=== PATIENT | male | born 1950 | race Caucasian/White ===

== ENCOUNTER 2021-02-01 09:23 | Emergency (ER) | payer OTHER ==
[~2021-02-01] VITALS: Ht 188 cm; Wt 77.6 kg
[~2021-02-01 09:23] MED LIST: AMOCLA875 PO; CIPR500 PO; MIRT30 PO; OXYACE5T PO; OXYC1TAB11 PO; Omeprazole20 M1 PO
[2021-02-01] MEDS ORDERED: HYDR1TAB94 PO (10:45)
== END 2021-02-01 11:45 | disposition home or self-care (01) ==
LOC: ER 09:23
DX: S42.411A Displaced simple supracondylar fracture without intercondylar fracture of right humerus, initial encounter for closed fracture (principal); I10 Essential (primary) hypertension; Z79.899 Other long term (current) drug therapy; W01.0XXA Fall on same level from slipping, tripping and stumbling without subsequent striking against object, initial encounter
CPT/HCPCS: 29105; 73080; 99283-25

== ENCOUNTER 2021-03-11 06:19 | Emergency (ER) | payer OTHER ==
[~2021-03-11] VITALS: Ht 185.4 cm; Wt 77.1 kg
[~2021-03-11 06:19] MED LIST changes: +HYDR1TAB94 PO
[2021-03-11] MEDS ORDERED: NAPROXEN250 M1 PO (08:00)
== END 2021-03-11 08:51 | disposition home or self-care (01) ==
LOC: ER 06:19
DX: S39.012A Strain of muscle, fascia and tendon of lower back, initial encounter (principal); I10 Essential (primary) hypertension; W07.XXXA Fall from chair, initial encounter
CPT/HCPCS: 72100; 99283-25; A9270

== ENCOUNTER 2021-03-12 23:23 | Inpatient (IN) | payer OTHER, MEDICARE ==
[~2021-03-12] VITALS: Ht 185.4 cm; Wt 81.7 kg
[~2021-03-12 23:23] MED LIST changes: +NAPROXEN250 M1 PO
[2021-03-13 00:06] LABS: BASOPHILS ABSOLUTE AUTO 0.01 K/mm3 (0.00-0.23); BASOPHILS PERCENT AUTO 0 % (0-2); EOSINOPHILS ABSOLUTE AUTO 0.03 K/mm3 (0.00-0.68); EOSINOPHILS PERCENT AUTO 1 % (0-6); Hematocrit 42.8 % (37.0-53.0); Hemoglobin 15.5 g/dL (13.5-17.5); IMMATURE GRAN PERCENT AUTO 0 % (0-1); LYMPHOCYTES ABSOLUTE AUTO 0.67 K/mm3 (0.84-5.20); LYMPHOCYTES PERCENT AUTO 21 % (21-46); MONOCYTES PERCENT AUTO 6 % (4-13); Mean Corpuscular HGB 36.8 pg (26.0-34.0); Mean Corpuscular HGB Conc 36.2 g/dL (31.5-36.5); Mean Corpuscular Volume 102 fL (80-100); Mean Platelet Volume 9.9 fL (9.1-12.4); NEUTROPHILS ABSOLUTE AUTO 2.23 K/mm3 (1.96-9.15); NEUTROPHILS PERCENT AUTO 71 % (41-73); Platelet Count 187 K/mm3 (150-400); RDW Coefficient Variation 12.2 % (11.7-14.2); Red Blood Cell Count 4.21 M/mm3 (4.30-5.90); White Blood Cell Count 3.14 K/mm3 (4.00-11.30)
[2021-03-13 00:25] LABS: Alanine Aminotransfer (ALT/SGP 33 U/L (12-78); Albumin, Blood 3.5 g/dL (3.4-5.0); Albumin/Globulin Ratio 0.9 (0.8-1.8); Alk Phos 111 U/L (50-136); Anion Gap 13 mmol/L (6-16); Aspartate Aminotrans (AST/SGOT 29 U/L (12-37); Bilirubin, Total 1.2 mg/dL (0.1-1.0); Blood Urea Nitrogen 20 mg/dL (8-24); Bun/Creatinine Ratio 22.7 (12.0-20.0); CO2, Blood 22 mmol/L (21-32); Calcium, Blood 8.6 mg/dL (8.5-10.1); Chloride, Blood 96 mmol/L (98-108); Creatinine, Blood 0.88 mg/dL (0.60-1.20); Globulin, Blood 3.7 g/dL (2.2-4.0); Glomerular Filtration Rate >60 (60-); Glucose, Blood 124 mg/dL (70-99); Potassium, Blood 2.8 mmol/L (3.5-5.5); Sodium, Blood 131 mmol/L (136-145); Total Protein, Blood 7.2 g/dL (6.4-8.2)
[2021-03-13 03:31] LABS: SARS-Cov-2 (COVID-19) PCR, MMC NEGATIVE (NEGATIVE)
--- NOTE | 2021-03-13 06:23 | NUR ---
PT ARRIVED AT THE UNIT AT 0430 AM. PT APPEARS VERY PAINFUL, MOANING. DIAPHORETIC AND COOL TO TOUCH. PT AOX4. VSS. FENTANYL FROM ED WAS GIVEN AT 0300 AM. IT DOESN'T SEEM TO HELPED. CHARGE NURSE DALY ASSIST IN CALLING DR. EDGE/HOSPITALIST. FENTANYL 50MCG WAS CHANGED TO Q2 INSTEAD OF Q4. PT REPORTS EPIGASTRIC PAIN. DENIES NAUSEA AND VOMITING. NPO. NO ABD DISTENTION, TENDER ON RLQ. PT HX ETOH. LAST ALCOHOL INTAKE WAS 03/12/2021 IN THE AFTERNOON. 20G IV ON LEFT FOREARM. LEFT FORM ARM HAS SCATTERED BRUISING AND HAD SOME DRIED BLOOD DUE TO RECENT FALL PER PT. RIGHT ARM HAS A BRACE. REORIENT IN ROOM. CALL LIGHT WITHIN REACH. WILL PROVIDE REPORT TO ONCOMING NURSE.
--- NOTE | 2021-03-13 07:48 | NUR ---
DR NATARAJAN CALLED RE LACTIC 2.[address] MORRIS BY TO SEE PT EARLIER TO TAKE PT TO OR NOW PT CLOTHES REMOVED PT HAD SEVERAL SKIN TEARS TO L ARM UNDER HIS SHIRT WE REMOVED DRESSINGS APPLED AND CLEANED WITH SOAP AND WATER
--- NOTE | 2021-03-13 08:19 | NUR ---
pt transported to or via bed
--- NOTE | 2021-03-13 09:07 | NUR ---
PT TRANSFERED TO [facility] VIA BED FROM FLOOR. History, Chart, Medications and Allergies reviewed before start of procedure. LUNGS WHEEZY THROUGHOUT. Patient confirms NPO status and agrees with scheduled surgery. Pre-Op teaching done. Pt verbalizes understanding.
--- NOTE | 2021-03-13 10:09 | NUR ---
03/13/21 1009 DEWAYNESD EVANS PT RECEIVED PRE OP ANTIBIOTICS PRIOR TO PROCEDURE PER DR MORRIS ORDERS.
[2021-03-13 13:34] LABS: Hematocrit 38.5 % (37.0-53.0); Hemoglobin 13.5 g/dL (13.5-17.5); Mean Corpuscular HGB Conc 35.1 g/dL (31.5-36.5); Mean Corpuscular Volume 106 fL (80-100); Mean Platelet Volume 10.4 fL (9.1-12.4); Platelet Count 165 K/mm3 (150-400); RDW Coefficient Variation 12.5 % (11.7-14.2); RDW Standard Deviation 49.1 fL (35.1-46.3); Red Blood Cell Count 3.65 M/mm3 (4.30-5.90); White Blood Cell Count 1.63 K/mm3 (4.00-11.30)
[2021-03-13 13:47] LABS: Alanine Aminotransfer (ALT/SGP 52 U/L (12-78); Alk Phos 63 U/L (50-136); Anion Gap 5 mmol/L (6-16); Aspartate Aminotrans (AST/SGOT 88 U/L (12-37); Bilirubin, Total 1.5 mg/dL (0.1-1.0); Blood Urea Nitrogen 20 mg/dL (8-24); Bun/Creatinine Ratio 33.3 (12.0-20.0); CO2, Blood 26 mmol/L (21-32); Calcium, Blood 7.2 mg/dL (8.5-10.1); Chloride, Blood 101 mmol/L (98-108); Glomerular Filtration Rate >60 (60-); Glucose, Blood 166 mg/dL (70-99); Magnesium, Blood 1.5 mg/dL (1.6-2.4); Phosphorus, Blood 4.5 mg/dL (2.5-4.9); Potassium, Blood 4.3 mmol/L (3.5-5.5); Sodium, Blood 132 mmol/L (136-145)
[2021-03-13 13:50] LABS: Albumin/Globulin Ratio 0.7 (0.8-1.8); Globulin, Blood 2.8 g/dL (2.2-4.0)
[2021-03-13 14:09] LABS: BAND PERCENT MAN 46 % (0-8); BASOPHILS PERCENT MAN 0 % (0-2); EOSINOPHILS PERCENT MAN 0 % (0-6); LYMPHOCYTES % ATYPICAL MANUAL 3 % (0-0); LYMPHOCYTES ABSOLUTE MAN 0.29 K/mm3 (0.84-5.20); LYMPHOCYTES PERCENT MAN 15 % (21-46); METAMYELOCYTE PERCENT MAN 19 % (0-0); MONOCYTES ABSOLUTE MAN 0.11 K/mm3 (0.16-1.47); MONOCYTES PERCENT MAN 7 % (4-13); NEUTROPHILS ABSOLUTE MAN 0.91 K/mm3 (1.96-9.15); SEG NEUTROPHILS PERCENT MAN 10 % (41-73); TOTAL CELLS COUNTED 100
[2021-03-13 14:17] LABS: Total Protein, Blood 4.8 g/dL (6.4-8.2)
--- NOTE | 2021-03-13 16:00 | NUR ---
PT TO ICU 10 FROM OR AT 1215, REMAINS SEDATED FROM SURGERY BUT HAS NO CURRENT DRIPS FOR SEDATION. LEVOPHED INFUSING AT 20MCG UPON ARRIVAL, BP PER L GROIN ART LINE 170/90, LEVO STOPPED, BP REMAINS STABLE. HR SIT WITH BBB, RATE 105, OCCASIONAL PVC'S AND PAC'S PRESENT. LS COARSE T/O, SMALL AMOUNT OF THICK WHITE SPUTUM FROM ETT, SPECIMEN SENT TO LAB. VENT AC 16, Vt 400, PEEP 5, FIO2 100%, SPO2 100%, RR 16-18, WILL TITRATE FIO2 DOWN ABLE. BT ABSENT, ABD TENDER, GAURDED. MIDLINE INCISION WITH BAKARI DRESSING CDI, SEAN DRAIN TO RUQ AND SEAN TO LUQ WITH SMALL AMOUNT OF DARK SS DRAINAGE UPON ARRIVAL, NGT TO LIWS. ART LINE TO R GROIN WNL, SITE SOFT, DRESSING CDI. BILAT LE'S ARE COOL TO TOUCH WITH FAINT PEDAL PULSES, RUE'S ARE ALSO COOL TO TOUCH. RUE WITH RECENT HX OF FRACTURE AND SURGERY, REMAINS IN A BRACE AT THIS TIME. CL TO R IJ PRESENT, FLUSHES AND DRAWS. NEW ORDERS, LABS DRAWN, DNR REINSTATED PER DR. MORRIS. SEDATION FROM OR WORE OFF AROUND 1310, PROPOFOL GTT STARTED. BP DROPPED WITH PROPOFOL, ATTEMPTED TO TITRATE MULTIPLE TIMES, BP REMAINED LOW AND PT WOKE UP. NEW ORDERS FOR PRECEDEX, WILL TITRATE SEDATIVES TO EFFECT. LAB RESULTS RECEIVED, AWARE OF WBC, STATES NEUTROPENIC PRECAUTIONS UNNECESSARY AT THIS TIME. REPLACING MAG PER ORDERS. FIO2 CURRENTLY 30%, OTHER VENT SETTINGS UNCHANGED. SEAN OUTPUT INCREASING, 100ML EMPTIED FROM EACH.
--- NOTE | 2021-03-13 17:12 | NUR ---
UPDATE ATTEMPTING TO TITRATE SEDATION TO EFFECT WHILE KEEPING MAP >60, UNSUCCESSFUL. PT NOT TOLERATING VENT WHEN SEDATION DECREASED BUT BECOMES HYPOTENSIVE WHEN SEDATION INCREASED. MAP MID 50'S, PT DIAPHORETIC. LEVOPHED INITIATED AT 5MCG, MAP NOW 68.
--- NOTE | 2021-03-13 17:36 | NUR ---
T WAVES INVERTED AROUND 1615, DR. BARAKAT NOTIFIED. EKG OBTAINED, NO ACUTE EVENT NOTED, BBB REMAINS, LV HYPERTROPHY PER EKG. HAS VIEWED EKG, AWAITING NEW ORDERS. LEVOPHED AT 8MCG, BP 103/65, MAP 76.
--- NOTE | 2021-03-13 18:55 | NUR ---
END OF SHIFT LEVO AT 15MCG, BP STABLE AT THIS TIME WITH MAP 72, HR 86. PROPOFOL 20MCG, PRECEDEX 0.7MCG, PT RESTING WITH EYES CLOSED. WAKES EASILY, DENIES CHEST PAIN, AND ABDOMINAL PAIN, NO LONGER DIAPHORETIC. VENT SETTINGS AC 16, Vt 400, FIO2 30%, PEEP 5, RR 16-20, SPO2 100%. COARSE LS HAVE CLEARED WITH ETT SUCTIONING. ABD SOFT, BT ABSENT, 250ML TOTAL DARK SS FROM SEAN DRAINS, BAKARI DRESSING REMAINS INTACT WITH SCANT LIGHT SHADOWING. CL TO R IJ WNL, ART LINE TO L FEMORAL ARTERY WNL, ZEROED WHEN PT ARRIVED TO UNIT. BLE COOL TO TOUCH WITH SLUGGISH CAP REFILL, PEDAL AND PT PULSES PRESENT, MINIMAL DIFFERENCE BETWEEN RLE AND LLE TEMP. ST DEPRESSION REMAINS PRESENT, WELL BBB AND OCCASIONAL PVC'S/PAC'S. PT POSITIVE >8L INTAKE THIS SHIFT, ALBUMIN INFUSING PER ORDERS.
--- NOTE | 2021-03-13 19:00 | NUR ---
ASSUMED CARE ASSUMED CARE OF PATIENT. INTUBATED- AC 16, TV 400, PEEP 5, FIO2 30%. SEDATED WITH PROPOFOL AT 20MCG/KG/MIN AND PRECEDEX AT 0.7MCG/KG/HR. PT OPENS EYES TO VERBAL STIMULI. FOLLOWS SOME SIMPLE COMMANDS. NODS HEAD YES/NO APPROPRIATELY. DENIES C/O PAIN AT THIS TIME. BILATERAL SOFT WRIST RESTRAINTS IN PLACE TO PROTECT TUBES/LINES. MONITOR SHOW NSR WITH BBB, RATE 80s. MAP >65 WITH LEVOPHED AT 15MCG/MIN. MIDLINE BAKARI ABD DRSG INTACT WITH SCANT DRAINAGE NOTED AT DISTAL END. JPs TO LEFT AND RIGHT ABDOMEN SEROSANGUINOUS DRAINAGE. BARTHOLOMEW PATENT AND DRAINING ANNA MARIE URINE. NS INFUSING AT 100CC/HR. SEE SHIFT ASSESSMEMT FOR FULL ASSESSMENT.
[2021-03-14 04:23] LABS: Hematocrit 28.3 % (37.0-53.0); Hemoglobin 10.2 g/dL (13.5-17.5); Mean Corpuscular HGB 37.5 pg (26.0-34.0); Mean Corpuscular Volume 104 fL (80-100); Mean Platelet Volume 10.2 fL (9.1-12.4); Platelet Count 130 K/mm3 (150-400); RDW Coefficient Variation 12.5 % (11.7-14.2); RDW Standard Deviation 47.3 fL (35.1-46.3); Red Blood Cell Count 2.72 M/mm3 (4.30-5.90); White Blood Cell Count 3.07 K/mm3 (4.00-11.30)
[2021-03-14 04:41] LABS: Alanine Aminotransfer (ALT/SGP 32 U/L (12-78); Albumin, Blood 2.8 g/dL (3.4-5.0); Albumin/Globulin Ratio 1.2 (0.8-1.8); Alk Phos 36 U/L (50-136); Anion Gap 6 mmol/L (6-16); Aspartate Aminotrans (AST/SGOT 33 U/L (12-37); Bilirubin, Total 1.3 mg/dL (0.1-1.0); Blood Urea Nitrogen 14 mg/dL (8-24); Bun/Creatinine Ratio 22.4 (12.0-20.0); CO2, Blood 25 mmol/L (21-32); Calcium, Blood 7.5 mg/dL (8.5-10.1); Chloride, Blood 107 mmol/L (98-108); Creatinine, Blood 0.63 mg/dL (0.60-1.20); Globulin, Blood 2.4 g/dL (2.2-4.0); Glomerular Filtration Rate >60 (60-); Glucose, Blood 131 mg/dL (70-99); Magnesium, Blood 2.2 mg/dL (1.6-2.4); Potassium, Blood 3.7 mmol/L (3.5-5.5); Sodium, Blood 138 mmol/L (136-145); Total Protein, Blood 5.2 g/dL (6.4-8.2)
--- NOTE | 2021-03-14 06:48 | NUR ---
SHIFT SUMMARY PT REMAINS INTUBATED- AC 16, TV 400, PEEP 5, FIO2 30%. PROPOFOL TITRATED OFF AND SBT DONE THIS AM- SEE RT DOCUMENTATION. SEDATED WITH PROPOFOL BETWEEN 20-30MCG/KG/MIN. INFUSING NOW AT 30MCG/KG/MIN. PRECEDEX CONTINUES AT 0.7MCG/KG/HR. PT OPENS EYES TO VERBAL STIMULI AND FOLLOWS SIMPLE COMMANDS. NODS HEAD YES/NO APPROPRIATELY. MEDICATED WITH FENTANYL 50MCG IV X 2 DOSES WITH GOOD RELIEF. PT DENIED PAIN THIS AM. MONITOR SHOWS SR WITH BBB AND OCCASIONAL PVCs, RATE 60-80s. LEVOPHED INFUSED BETWEEN 1-20MCG/MIN DURING SHIFT TO MAINTAIN MAP >65. NOW INFUSING AT 3MCG/MIN. AFEBRILE. ABD DRSG D/I. JPs INTACT TO RIGHT AND LEFT ABDOMEN. NG WITH DARK GREEN DRAINAGE. BARTHOLOMEW PATENT AND DRAINING TO GRAVITY. RIJ PATENT. LEFT FEMORAL ARTERIAL PATENT, ZEROED. WILL REPORT TO ONCOMING RN WHEN AVAILABLE.
--- NOTE | 2021-03-14 09:26 | NUR ---
CARE OF PT ASSUMED AT 0700. PT SEDATED ON PROPOFOL AT 30MCG. PRECEDEX AT 0.7MCG FOR MECH VENT. PT WOKE UP DURING TURN AND GRIMACED. PT NODDED HEAD YES TO ABD PAIN. FENT 50MCG GIVEN FOR PAIN. MIDLINE DRSG C/D/I W BAKARI DRAIN. SEAN X 2 W MIN SS OUTPUT. PT TO HAVE CHO THIS AM FOR INVERTED T WAVE. DR BARAKAT IN THIS AM, FULL UPDATE GIVEN. POSSIBLE EXTUBATION TODAY. TROPONIN ORDERED.
--- NOTE | 2021-03-14 12:29 | NUR ---
PT PLACED ON SPONT PS 10 FOR WEANING TRIAL. LR AT 60/HR STARTED PER DR BARAKAT.
--- NOTE | 2021-03-14 12:56 | NUR ---
Echocardiogram using 0.50ml of Definity contrast performed.
--- NOTE | 2021-03-14 14:33 | NUR ---
PT EXTUBATED AT 1413. PT WIDE AWAKE. CIWA 0. PT DENIES C/O OF ABD PAIN AT THIS TIME. SATS 99% ON 2L VIA N/C. PT'S DAUGHTER AT BEDSIDE. PT AND PT'S DAUGHTER GIVEN COMPLETE UPDATE, QUESTIONS ANSWERED. NG TUBE REMAINS IN AND TO LIS PER DR MORRIS. RESTRAINTS REMOVED.
--- NOTE | 2021-03-14 14:56 | NUR ---
PRECEDEX AND LEVOPHED GTT STOPPED. SYMPTOMS OF WITHDRAWAL REVIEWED W PT, PT TO NOTIFY ME IF SYMPTOMS DEVELOP, WILL ALSO MONITOR CIWA. COUGHING AND DEEP BREATHING REVIEWED W PT, FOLDED BLANKET GIVEN TO BRACE W COUGHING. WILL GIVE PT I.S. W INSTRUCTIONS. A FEW BOWEL TONES HEARD TO LUQ, ABSENT OTHERWISE.
--- NOTE | 2021-03-14 18:40 | NUR ---
PT REMAINS AWAKE WITH LITTLE COMPLAINTS, WATCHING TV. FENT 50MCG GIVEN ONCE AFTER "COUGHING FIT". PAIN NOW 0/10. AT 1742 PT COVERTED TO AFIB W RVR RATE UP TO 150. DR BARAKAT NOTIFIED. CARDIZEM GTT STARTED AT 5MG/HR. CIWA REMAINS 0. DRSG TO MIDLINE REMAINS CDI. NG REMAINS TO LIS. PT DENIES NAUSEA. BP STABLE. PT AFEBRILE.
--- NOTE | 2021-03-14 19:00 | NUR ---
ASSUMED CARE ASSUMED CARE OF PATIENT. AWAKE AND ALERT. ORIENTED AND COOPERATIVE WITH CARE. WATCHING TV WHEN UNDISTURBED. C/O PAIN WITH COUGHING, BUT DENIES NEED FOR PAIN MED AT THIS TIME. DENIES C/O NAUSEA OR OTHER DISCOMFORT. MONITOR SHOWS AFIB WITH BBB, RATE 100-140s AT THIS TIME. BP STABLE. CARDIZEM GTT INFUSING AT 15MG/HR. RESPIRATIONS EVEN AND UNLABORED. FREQUENT COUGH, PRODUCTIVE AT TIMES OF THICK PAYNE SPUTUM. RIJ SITE PATENT. LEFT FEMORAL ARTERIAL LINE NOTED. MIDLINE ABDOMINAL INCISION WITH BAKARI DRSG. JPs TO RIGHT AND LEFT ABDOMEN WITH SEROSANGUINOUS DRAINAGE. BARTHOLOMEW PATENT AND DRAINING YELLOW URINE. SCDs TO BLEs. SEE SHIFT ASSESSMENT FOR FULL ASSESSMENT.
[2021-03-15 05:15] LABS: Hematocrit 30.7 % (37.0-53.0); Hemoglobin 10.6 g/dL (13.5-17.5); Mean Corpuscular HGB 36.8 pg (26.0-34.0); Mean Corpuscular HGB Conc 34.5 g/dL (31.5-36.5); Mean Corpuscular Volume 107 fL (80-100); Mean Platelet Volume 10.3 fL (9.1-12.4); Platelet Count 162 K/mm3 (150-400); RDW Coefficient Variation 12.9 % (11.7-14.2); RDW Standard Deviation 50.8 fL (35.1-46.3); Red Blood Cell Count 2.88 M/mm3 (4.30-5.90); White Blood Cell Count 7.95 K/mm3 (4.00-11.30)
[2021-03-15 05:33] LABS: Albumin, Blood 2.9 g/dL (3.4-5.0); Anion Gap 6 mmol/L (6-16); Blood Urea Nitrogen 13 mg/dL (8-24); Bun/Creatinine Ratio 20.8 (12.0-20.0); CO2, Blood 26 mmol/L (21-32); Calcium, Blood 8.5 mg/dL (8.5-10.1); Chloride, Blood 109 mmol/L (98-108); Creatinine, Blood 0.63 mg/dL (0.60-1.20); Glomerular Filtration Rate >60 (60-); Glucose, Blood 85 mg/dL (70-99); Phosphorus, Blood 1.8 mg/dL (2.5-4.9); Potassium, Blood 3.5 mmol/L (3.5-5.5); Sodium, Blood 141 mmol/L (136-145)
--- NOTE | 2021-03-15 06:16 | NUR ---
SHIFT SUMMARY NO ACUTE CHANGES DURING NOC. SLEPT INTERMITTENTLY WHEN UNDISTURBED. MEDICATED WITH FENTANYL 50MCG IV X 3 DOSES FOR C/O ABDOMINAL AND BACK PAIN. PT STATES ADEQUATE RELIEF OF PAIN. DENIES C/O NAUSEA. REMAINED IN AFIB WITH BBB T/O NOC WITH RATE 80s-150s. CARDIZEM INFUSING BETWEEN 5-15MG/HR- NOW AT 5MG/HR. CARDIZEM WAS OFF FOR A SHORT PERIOD OF TIME. AFEBRILE. 02 AT 2L NC TO MAINTAIN SATS >90%. RESPIRATIONS EVEN AND UNLABORED. FREQUENT COUGH PRODUCTIVE OF THICK SPUTUM. DENIES SOB/DYSPNEA. USES IS WITH ENCOURAGEMENT. ABD DRSG D/I. LEFT ABDOMEN SEAN WITH SMALL AMOUNT OF SEROUS DRAINAGE. RIGHT ABDOMEN SEAN WITH SEROSANGUINOUS DRAINAGE. NG TO LIS WITH BILE DRAINAGE. BARTHOLOMEW PATENT AND DRAINING TO GRAVITY. LR INFUSING AT 60CC/HR. RIJ CENTRAL LINE AND LEFT FEMORAL ARTERIAL LINE PATENT. WILL REPORT TO ONCOMING RN WHEN AVAILABLE.
--- NOTE | 2021-03-15 08:50 | NUR ---
CARE ASSUMED OF PT AT 0700. PT RESTING IN BED, DOZING ON AND OFF WHILE WATCHING TV. PT HAS MORE C/O ABD PAIN TODAY HE IS COUGHING UP SPUTUM FREQUENTLY. PT HAS A DIFF TIME TAKING IN A BIG BREATH D/T PAIN. IS AT BEDSIDE BUT AGAIN PT HAS A DIFF TIME USING D/T PAIN. MIDLINE INCISION W BAKARI VAC IS CDI. SEAN DRAINS X 2 DRAINING SMALL AMT OF SS FLUID. PT HAS A FEW FAINT BT'S TO LUQ. NG REMAINS TO LIS, LIGHT GREEN/YELLOW BILE TO CANISTER. LUNGS DIMINISHED TO BASES. PT COVERTED TO A SINUS RHTHYM FROM AFIB AROUND 0640 THIS AM. CARDIZEM IS AT 5MG/HR. PT HAS SOME HTN. ART LINE IN USE TO R FEM ART. BLE SLIGHTLY WARMER AND MORE PINK THAN YESTERDAY.
--- NOTE | 2021-03-15 10:01 | NUR ---
DR BARAKAT AT BEDSIDE. FULL UPDATE GIVEN. KPHOS 30MMOL INFUSING. CARDIZEM PLACED ON STANDBY. FENT INCREASED TO Q1HR
--- NOTE | 2021-03-15 16:36 | NUR ---
ART LINE REMOVED FROM LEFT GROIN. PRESSURE HELD X 10MIN. CLEAR OCCULSIVE DRSG PLACED. PT REMAINS IN SINUS RHTHYM W FREQ PAC/PVC. BP WNL TO HTN. PT HAS REQUIRED FENT 50MCG ABOUT EVERY 2HRS FOR ABD PAIN.
--- NOTE | 2021-03-15 18:33 | NUR ---
PT HAS DONE WELL THIS SHIFT. PT REMAINS IN SINUS RHTHYM W RATE 80'S, CONT TO HAVE ECTOPY; PAC/PVC. MINIMAL SS OUTPUT FROM SEAN DRAINS. DENIES NAUSEA. PAIN WELL CONTROLLED W FENT 50MCG ~2HRS. ENCOURAGED TO DEEP BREATH AND COUGH T/O SHIFT AND USE IS. MIDLINE DRSG REMAINS C/D/I. SATS >90% ON 2L VIA NC. LR CONT TO INFUSE AT 60CC/HR. PT NOW SURGICAL FLOOR STATUS.
--- NOTE | 2021-03-15 19:45 | NUR ---
TRANSFER TO UNIT OBTAINED REPORT FROM TANK ASSEMBLER. SETTLED PATIENT IN ROOM. ALERT AND ORIENTED. HOOKED UP IV LINES AND SUCTION. PATIENT RESTING IN BED. GAVE REPORT TO SCHOOL OFFICE MANAGER RN.
--- NOTE | 2021-03-16 04:46 | NUR ---
SHIFT SUMMARY POD#1 EXP LAP WITH COLLIN PATCH. AAOX4. DISCOMFORT DECREASED WITH 50mcg FENTANYL X1 THIS SHIFT. NO NAUSEA/EMESIS. ABD INCISION WITH BAKARI C/D/I, ABD SOFT/TENDER. SEAN X2 SECURE/DRAINING SS. NGT TO LIS. IVF + ABX PER ORDERS. BARTHOLOMEW SECURE/DRAINING. NO ACUTE CHANGES OVER NIGHT. PT RESTING WELL THIS AM WITH CALL LIGHT IN REACH.
[2021-03-16 05:04] LABS: Hematocrit 33.3 % (37.0-53.0); Hemoglobin 11.4 g/dL (13.5-17.5); Mean Corpuscular HGB 36.5 pg (26.0-34.0); Mean Corpuscular HGB Conc 34.2 g/dL (31.5-36.5); Mean Corpuscular Volume 107 fL (80-100); Mean Platelet Volume 9.9 fL (9.1-12.4); Platelet Count 203 K/mm3 (150-400); RDW Standard Deviation 50.9 fL (35.1-46.3); Red Blood Cell Count 3.12 M/mm3 (4.30-5.90)
[2021-03-16 05:26] LABS: Albumin, Blood 2.3 g/dL (3.4-5.0); Anion Gap 8 mmol/L (6-16); Blood Urea Nitrogen 13 mg/dL (8-24); CO2, Blood 24 mmol/L (21-32); Calcium, Blood 8.6 mg/dL (8.5-10.1); Chloride, Blood 108 mmol/L (98-108); Creatinine, Blood 0.62 mg/dL (0.60-1.20); Glomerular Filtration Rate >60 (60-); Glucose, Blood 79 mg/dL (70-99); Phosphorus, Blood 2.9 mg/dL (2.5-4.9); Potassium, Blood 3.4 mmol/L (3.5-5.5); Sodium, Blood 140 mmol/L (136-145)
[2021-03-16 05:38] LABS: BAND PERCENT MAN 3 % (0-8); BASOPHILS PERCENT MAN 0 % (0-2); EOSINOPHILS ABSOLUTE MAN 0.23 K/mm3 (0.00-0.68); EOSINOPHILS PERCENT MAN 2 % (0-6); LYMPHOCYTES ABSOLUTE MAN 0.23 K/mm3 (0.84-5.20); LYMPHOCYTES PERCENT MAN 2 % (21-46); MONOCYTES ABSOLUTE MAN 1.07 K/mm3 (0.16-1.47); MONOCYTES PERCENT MAN 9 % (4-13); NEUTROPHILS ABSOLUTE MAN 10.35 K/mm3 (1.96-9.15); SEG NEUTROPHILS PERCENT MAN 84 % (41-73); TOTAL CELLS COUNTED 100
--- NOTE | 2021-03-16 16:32 | NUR ---
PT TACHY. HR GREATER THAN 100 T/O DAY. DISCUSSED W/DR BLAKE. ORDERS OBTAINED TO INCREASE LR TO 100/HR X1.5L. PT RESTING IN BED. DENIES ANY NEEDS AT THIS TIME.
--- NOTE | 2021-03-16 18:32 | NUR ---
SUMMARY NO ACUTE CHANGES T/O SHIFT. MEDICATED PT PER ORDERS FOR PAIN TO ABD DUE TO COUGHING T/O SHIFT. PT NG PUTTING OUT DARK GREEN FLUID. SEAN X2 PUTTING OUT SS FLUID. BARTHOLOMEW CATH DARK YELLOW URINE. USES CALL LIGHT APPROPRIATELY.
--- NOTE | 2021-03-16 21:29 | NUR ---
CHART ACCESS THIS SPRAY PAINTER WAS CONTACTED BY PRIMARY RN FOR QUESTIONS ABOUT TELEMETRY REPORT OF A PROLONGED QT. PERFORMED CHART REVIEW TO LOOK INTO MEDICATIONS AND MAKE RECOMMENDATIONS FOR MD COMMUNICATION.
[2021-03-17 04:56] LABS: BASOPHILS ABSOLUTE AUTO 0.05 K/mm3 (0.00-0.23); BASOPHILS PERCENT AUTO 0 % (0-2); EOSINOPHILS ABSOLUTE AUTO 0.12 K/mm3 (0.00-0.68); EOSINOPHILS PERCENT AUTO 1 % (0-6); Hematocrit 35.4 % (37.0-53.0); Hemoglobin 12.1 g/dL (13.5-17.5); IMMATURE GRAN ABSOLUTE AUTO 0.11 K/mm3 (0.00-0.10); IMMATURE GRAN PERCENT AUTO 1 % (0-1); LYMPHOCYTES ABSOLUTE AUTO 0.72 K/mm3 (0.84-5.20); LYMPHOCYTES PERCENT AUTO 6 % (21-46); MONOCYTES ABSOLUTE AUTO 1.86 K/mm3 (0.16-1.47); MONOCYTES PERCENT AUTO 14 % (4-13); Mean Corpuscular HGB 36.8 pg (26.0-34.0); Mean Corpuscular HGB Conc 34.2 g/dL (31.5-36.5); Mean Corpuscular Volume 108 fL (80-100); Mean Platelet Volume 9.6 fL (9.1-12.4); NEUTROPHILS ABSOLUTE AUTO 10.02 K/mm3 (1.96-9.15); NEUTROPHILS PERCENT AUTO 78 % (41-73); Platelet Count 237 K/mm3 (150-400); RDW Coefficient Variation 12.8 % (11.7-14.2); Red Blood Cell Count 3.29 M/mm3 (4.30-5.90); White Blood Cell Count 12.88 K/mm3 (4.00-11.30)
[2021-03-17 05:16] LABS: Albumin, Blood 2.1 g/dL (3.4-5.0); Anion Gap 7 mmol/L (6-16); Blood Urea Nitrogen 15 mg/dL (8-24); Bun/Creatinine Ratio 25.2 (12.0-20.0); CO2, Blood 25 mmol/L (21-32); Calcium, Blood 8.7 mg/dL (8.5-10.1); Chloride, Blood 110 mmol/L (98-108); Glomerular Filtration Rate >60 (60-); Glucose, Blood 90 mg/dL (70-99); Phosphorus, Blood 3.1 mg/dL (2.5-4.9); Potassium, Blood 3.4 mmol/L (3.5-5.5); Sodium, Blood 142 mmol/L (136-145)
--- NOTE | 2021-03-17 06:20 | NUR ---
SHIFT SUMMARY POD4 EXP LAP AND COLLIN PATCH W/ DR. MORRIS. NO ACUTE CHANGES OVERNIGHT. PT REPORTS INCREASE PAIN WHEN COUGHING. PAIN MANAGED WITH FENTANYL 50MCG. NPO. NG TUBE INTACT, TAPE DRESSING CHANGED AFTER MIDNIGHT BECAUSE IT WAS LOSE. SEAN DRAIN 1 ON RUQ - DRAINING SS 5ML OUTPUT. SEAN DRAIN 2 ON LUQ - DRAINING SS 15ML OUTPUT. NG TUBE DRAINING BILEOUS COLOR -400ML OUTPUT. PT DENIES NAUSEA AND VOMITING. BARTHOLOMEW IN PLACED - OUTPUT OF 725ML WITH DARK YELLOW URINE. TELE AT SINUS 96 WITH PAC'S AT THE BEGINNING OF SHIFT. I WAS CALLED BY TELE AT 2130 NOTIFIED SOME QTC 0.52 (NOT NEW) WITH SOME PVC'S AND PAC'S. CONSULTED MELISSA RN FROM PCU [facility]VISE TO NOTIFY PROVIDER IF PERSIST AND MONITOR PT. PT WAS ASYMPTOMATIC, SLEEPING COMFORTABLE IN BED. THIS MORNING AT 0500AM HE WAS ON SINUS TACK WITH BBB PAC AND PVC'S AT 100. PT COMFORTABLE SLEEPING IN BED, DENIES CHEST PAIN AND SOB. BAKARI ON MIDLINE ABD IS PRESENT INTACT AND SUCTIONING. CIWA REMAIN NEGATIVE T/O SHIFT. CALL LIGHT WITHIN REACH. WILL PROVIDE REPORT TO ONCOMING NURSE AND NOTIFY ABOUT QTC - TELE EPISODE LAST NIGHT.
--- NOTE | 2021-03-17 08:44 | NUR ---
PT TO IMAGING
--- NOTE | 2021-03-17 14:00 | NUR ---
PT WORKING W/THERAPY
--- NOTE | 2021-03-17 14:23 | NUR ---
PT SITTING UP IN CHAIR. WORKED WITH THERAPY. WHILE USING RESTROOM, REPORTED FELT HOT; WAS DIAPHORETIC. SAT IN CHAIR AND O2 HIGH 80S. INCREASED OXYGEN TO 3L. NOW 91%. BP STABLE. PT DENIES STANLEY, TREMORS, NAUSEA. A&OX4. PT/OT RECOMMENDING SNF. CALL LIGHT IN REACH.
--- NOTE | 2021-03-17 17:07 | NUR ---
SUMMARY PT HAD UPPER GI THIS AM WHICH SHOWED NO LEAKS. DR MORRIS DC'D NG TUBE. PT TOLERATING CLEARS. WORKED W/PT AND OT. BOTH RECOMMENDING SNF AT THIS TIME. MEDICATED PT PER ORDERS T/O SHIFT FOR PAIN. JPS PUTTING OUT SMALL AMT SS FLUID. PT HAD SMALL BM THIS AFTERNOON. CALL LIGHT IN REACH.
[2021-03-18 05:16] LABS: BASOPHILS ABSOLUTE AUTO 0.05 K/mm3 (0.00-0.23); BASOPHILS PERCENT AUTO 0 % (0-2); EOSINOPHILS PERCENT AUTO 2 % (0-6); IMMATURE GRAN ABSOLUTE AUTO 0.12 K/mm3 (0.00-0.10); IMMATURE GRAN PERCENT AUTO 1 % (0-1); LYMPHOCYTES ABSOLUTE AUTO 0.88 K/mm3 (0.84-5.20); LYMPHOCYTES PERCENT AUTO 8 % (21-46); MONOCYTES ABSOLUTE AUTO 1.87 K/mm3 (0.16-1.47); MONOCYTES PERCENT AUTO 17 % (4-13); Mean Corpuscular HGB 36.1 pg (26.0-34.0); Mean Corpuscular HGB Conc 34.3 g/dL (31.5-36.5); Mean Corpuscular Volume 105 fL (80-100); Mean Platelet Volume 9.7 fL (9.1-12.4); NEUTROPHILS ABSOLUTE AUTO 8.22 K/mm3 (1.96-9.15); NEUTROPHILS PERCENT AUTO 72 % (41-73); Platelet Count 266 K/mm3 (150-400); RDW Coefficient Variation 12.8 % (11.7-14.2); RDW Standard Deviation 50.1 fL (35.1-46.3); Red Blood Cell Count 3.32 M/mm3 (4.30-5.90); White Blood Cell Count 11.34 K/mm3 (4.00-11.30)
--- NOTE | 2021-03-18 06:16 | NUR ---
SHIFT SUMMARY PT AOX4. POD5 DUODENAL ULCER WITH COLLIN PATCH WITH DR. LEAL VSS. PT ON 3L O2 SATURATING AT 90-95%. TELE ON SINUS TACH 90'S. TOLERATING CLEAR LIQ DIET. DENIES NAUSEA AND VOMITING. PT REPORTS PAIN BUT IT IS MORE ON THE LEFT CHEST/RIB AREA WHEN COUGHING. BINDER WAS PLACED AND SHE SAID THAT IT DID HELPED A LITTLE. PAIN MANAGED WITH FENTANYL 50MCG. PT ALSO HAS A WET COUGH. ENC CLEARING LUNGS WITH DEEP BREATHING EX, COUGHING W/ SPLINTING, AND USE OF I/S. IV ON L FOREARM INFILTRATED, SO DC'D IV. INFUSING NS AT 75ML/HR ON IJ.I ALSO DID PARTIAL BEDBATH THIS MORNING. USE URINAL WHEN VOIDING. CALL LIGHT WITHIN REACH. PLAN TO ADVANCE DIET TODAY AND CONT ABX. WILL PROVIDE REPORT TO ONCOMING NURSE.
--- NOTE | 2021-03-18 16:54 | NUR ---
SHIFT SUMMARY POD 5 EX LAP WITH GRAM PATCH. PT HAS TOLERATED DIET TODAY, DENIES ANY NAUSEA. PAIN MANAGED PER EMAR, REPORTS TOLERABLE WITH AN INCREASE WITH AMBULATION AND WHEN COUGHING. TRANSITIONED TO ORAL PAIN MEDS TODAY. 2 SEAN DRAINS PATENT AND DRAINING TODAY. SAT UP IN CHAIR FOR LARGE PORTION OF THE SHIFT.
--- NOTE | 2021-03-18 18:33 | NUR ---
removed picco dressing and changed dressin on r christian drain. pt requested somethinig to cover micaela placed medipore over for comfort.
[2021-03-19 04:38] LABS: BASOPHILS ABSOLUTE AUTO 0.07 K/mm3 (0.00-0.23); BASOPHILS PERCENT AUTO 1 % (0-2); EOSINOPHILS ABSOLUTE AUTO 0.19 K/mm3 (0.00-0.68); EOSINOPHILS PERCENT AUTO 2 % (0-6); Hematocrit 35.5 % (37.0-53.0); Hemoglobin 12.1 g/dL (13.5-17.5); IMMATURE GRAN PERCENT AUTO 1 % (0-1); LYMPHOCYTES ABSOLUTE AUTO 1.13 K/mm3 (0.84-5.20); LYMPHOCYTES PERCENT AUTO 10 % (21-46); MONOCYTES ABSOLUTE AUTO 1.39 K/mm3 (0.16-1.47); MONOCYTES PERCENT AUTO 12 % (4-13); Mean Corpuscular HGB 36.3 pg (26.0-34.0); Mean Corpuscular HGB Conc 34.1 g/dL (31.5-36.5); Mean Corpuscular Volume 107 fL (80-100); NEUTROPHILS ABSOLUTE AUTO 9.06 K/mm3 (1.96-9.15); NEUTROPHILS PERCENT AUTO 76 % (41-73); Platelet Count 287 K/mm3 (150-400); RDW Coefficient Variation 12.9 % (11.7-14.2); RDW Standard Deviation 49.5 fL (35.1-46.3); Red Blood Cell Count 3.33 M/mm3 (4.30-5.90); White Blood Cell Count 11.94 K/mm3 (4.00-11.30)
[2021-03-19 05:23] LABS: Alanine Aminotransfer (ALT/SGP 19 U/L (12-78); Albumin, Blood 1.9 g/dL (3.4-5.0); Albumin/Globulin Ratio 0.5 (0.8-1.8); Alk Phos 58 U/L (50-136); Anion Gap 7 mmol/L (6-16); Aspartate Aminotrans (AST/SGOT 18 U/L (12-37); Bilirubin, Total 0.8 mg/dL (0.1-1.0); Blood Urea Nitrogen 10 mg/dL (8-24); Bun/Creatinine Ratio 18.7 (12.0-20.0); CO2, Blood 26 mmol/L (21-32); Chloride, Blood 107 mmol/L (98-108); Creatinine, Blood 0.54 mg/dL (0.60-1.20); Globulin, Blood 3.5 g/dL (2.2-4.0); Glomerular Filtration Rate >60 (60-); Glucose, Blood 91 mg/dL (70-99); Magnesium, Blood 1.6 mg/dL (1.6-2.4); Potassium, Blood 3.5 mmol/L (3.5-5.5); Sodium, Blood 140 mmol/L (136-145); Total Protein, Blood 5.4 g/dL (6.4-8.2)
--- NOTE | 2021-03-19 12:22 | NUR ---
PT SATS 96% ON ROOM AIR WHILE AT REST, WILL DESAT WITH EXERTION AND REQUIRES 2L TO RECOVER, TAKES APPROX A MINUTE TO RECOVER. PT HAS BEEN WORKING ON DEEP BREATHING AND REPORTS MUCH EASIER SINCE TORODOL GIVEN. TAUGHT PATIENT HOW TO USE I.S. AND PATIENT STATES IT IS UP TO HIM TO STAY ON TOP OF BREATHING TO GET BETTER.
--- NOTE | 2021-03-19 19:43 | NUR ---
SHIFT SUMMARY PT PAIN MANAGED PER EMAR, HE REPORTS IMPROVEMENT DURING SHIFT AND REPORTS BEING ABLE TO TAKE DEEP BREATHS AGAIN. HE HAS BEEN USING INSPIROMATER INDEPENDANTLY AFTER BEING TAUGHT. SEAN DRAINS HAVE HAD MINIMAL DRAINAGE DURING SHIFT. DRESSINGS UNCHANGED DURING SHIFT. PT ENCOURAGED AFTER WORKING WITH THERAPY AND IS ASKING TO GO ON [place] DURING THE SHIFT. PLAN WILL BE TO DC SEAN DRAINS PRIOR TO DISCHARGE ONCE MEDICALLY CLEARED AND A DISCHARGE PLAN IS IN PLACE.
--- NOTE | 2021-03-20 06:09 | NUR ---
PT A/OX4. VSS ON 2L O2. PAIN MEDS GIVEN AND EFFECTIVE. SLEEPING B/W CARE. MINIMAL OUTPUT FROM SEAN DRAINS. SEAN DRAIN BULBS ARE COMPRESSED. AMBULATED IN HALLWAY 1X. SLEEPING B/W CARE/ USING CALL LIGHT TO MAKE NEEDS KNOWN
[2021-03-20 10:33] LABS: SARS-Cov-2 (COVID-19) PCR, MMC NEGATIVE (NEGATIVE)
--- NOTE | 2021-03-20 16:01 | NUR ---
DISCHARGE NOTE: PATIENT WAS EDUCATED ON DISCHARGE INSTRUCTIONS. HE VERBALIZED UNDERSTANDING OF INSTRUCTIONS. HARD PERSCRIPTION WAS PLACED IN TRANSPORT FOLDER. THIS NURSE GAVE REPORT TO [facility] NURSE HALI. IV WAS TAKEN OUT OF PATIENT AND WAS WNL. HIS MIDLINE HINA ON HIS ABD ARE C/D/I WITH A BANDAGE OVER IT. DR. MORRIS CAME EARLIER IN THE AFTERNOON AND TOOK OUT BOTH SEAN'S AND ARE NOW COVERED WITH BANDAIDS THAT ARE ALSO C/D/I. HIS RIGHT ARM IS IN THE BRACE FROM A PREVIOUS SURGERY AND IS ABLE TO WIGGLE ALL EXTREMITIES. HE DENIES NUMBNESS AND TINGLING. HE IS ABLE TO VOID, PASS GAS, AND TOLERATE SMALL AMOUNTS OF PO INTAKE. HE IS A SBA WITH FWW AND GAIT BELT. HE IS ALERT AND ORIENTED X4. VS ARE WNL AND IS ON 2L NC WITH ACTIVITY. PAIN IS MANAGED WITH PO NARCOTIC. HE HAS HIS ITEMS GATHERED AND IS DRESSED. [facility] CAME AND PICKED HIM UP TO TAKE HIM TO [facility] BY WHEELCHAIR. HE WILL FOLLOW UP WITH DR. MORRIS IN 2 WEEKS.
== END 2021-03-20 14:15 | disposition home or self-care (01) | DRG 853 ==
LOC: ER 23:23 → SURS 03-13 03:13 → ICUW 03-13 03:13 → SURS 03-13 04:16 → ICUW 03-13 11:35 → SURS 03-15 19:17
PROVIDERS: Emergency Medicine; Internal Medicine; Internal Medicine Critical Care Medicine; Surgery; ADMIT Family Medicine
PROC: 4A133B1 Monitoring of Arterial Pressure, Peripheral, Percutaneous Approach (ICD-10-PCS; 2021-03-13)
PROC: 4A133J1 Monitoring of Arterial Pulse, Peripheral, Percutaneous Approach (ICD-10-PCS; 2021-03-13)
PROC: 3E033XZ Introduction of Vasopressor into Peripheral Vein, Percutaneous Approach (ICD-10-PCS; 2021-03-13)
PROC: 0DU907Z Supplement Duodenum with Autologous Tissue Substitute, Open Approach (ICD-10-PCS; principal; 2021-03-13 08:30)
PROC: 02HV33Z Insertion of Infusion Device into Superior Vena Cava, Percutaneous Approach (ICD-10-PCS; 2021-03-13 08:30)
PROC: 04HY32Z Insertion of Monitoring Device into Lower Artery, Percutaneous Approach (ICD-10-PCS; 2021-03-13 08:30)
DX: A41.9 Sepsis, unspecified organism (principal); K26.5 Chronic or unspecified duodenal ulcer with perforation; R65.21 Severe sepsis with septic shock; E87.1 Hypo-osmolality and hyponatremia; M48.56XA Collapsed vertebra, not elsewhere classified, lumbar region, initial encounter for fracture; I42.6 Alcoholic cardiomyopathy; E87.2 Acidosis; Z20.822 Contact with and (suspected) exposure to COVID-19; I10 Essential (primary) hypertension; E87.5 Hyperkalemia; I48.91 Unspecified atrial fibrillation; F10.129 Alcohol abuse with intoxication, unspecified; F17.210 Nicotine dependence, cigarettes, uncomplicated; Z71.6 Tobacco abuse counseling; Z98.890 Other specified postprocedural states; Z79.899 Other long term (current) drug therapy
CPT/HCPCS: 36415; 71045; 74176; 74240; 80053; 80069; 83605; 83690; 83735; 84100; 84145; 84484; 85025; 85027; 86677; 87040; 87070; 87205; 93005; 93010; 94002; 94003; 94640; 94760; 94761; 96361; 96365; 96375; 96376; 97110; 97116; 97162; 97166; 97530; 97535; 99285-25; A9270; C1751; C8929; C9113; G0480; J1100; J1650; J1885; J2250; J2370; J2405; J2543; J2704; J3010; J3411; J3475; J3480; J7030; J7042; J7050; J7060; J7120; P9046; Q9957; U0004

== ENCOUNTER 2021-05-14 09:37 | Day surgery (SDC) | payer OTHER | END 2021-05-14 10:30 | disposition home or self-care (01) | LOC: ORSCSDS 09:37 | DX: K26.5 Chronic or unspecified duodenal ulcer with perforation (principal); Z53.9 Procedure and treatment not carried out, unspecified reason | CPT/HCPCS: J0461; J2405; J7120 ==

== ENCOUNTER 2021-07-12 20:23 | Observation (INO) | payer OTHER ==
[~2021-07-12] VITALS: Ht 188 cm; Wt 64.5 kg
[~2021-07-12 20:23] MED LIST changes: +BACL10 PO; +NAPR500 PO; +ONDA4ODT MM; +PANT40 PO
[2021-07-12 20:57] LABS: BASOPHILS ABSOLUTE AUTO 0.05 K/mm3 (0.00-0.23); BASOPHILS PERCENT AUTO 1 % (0-2); EOSINOPHILS ABSOLUTE AUTO 0.09 K/mm3 (0.00-0.68); EOSINOPHILS PERCENT AUTO 1 % (0-6); Hematocrit 46.6 % (37.0-53.0); Hemoglobin 16.1 g/dL (13.5-17.5); IMMATURE GRAN ABSOLUTE AUTO 0.02 K/mm3 (0.00-0.10); IMMATURE GRAN PERCENT AUTO 0 % (0-1); LYMPHOCYTES ABSOLUTE AUTO 1.27 K/mm3 (0.84-5.20); LYMPHOCYTES PERCENT AUTO 19 % (21-46); MONOCYTES ABSOLUTE AUTO 0.63 K/mm3 (0.16-1.47); MONOCYTES PERCENT AUTO 9 % (4-13); Mean Corpuscular HGB 36.1 pg (26.0-34.0); Mean Corpuscular HGB Conc 34.5 g/dL (31.5-36.5); Mean Corpuscular Volume 105 fL (80-100); Mean Platelet Volume 9.6 fL (9.1-12.4); NEUTROPHILS ABSOLUTE AUTO 4.81 K/mm3 (1.96-9.15); NEUTROPHILS PERCENT AUTO 70 % (41-73); Platelet Count 224 K/mm3 (150-400); RDW Coefficient Variation 13.3 % (11.7-14.2); RDW Standard Deviation 51.9 fL (35.1-46.3); Red Blood Cell Count 4.46 M/mm3 (4.30-5.90); White Blood Cell Count 6.87 K/mm3 (4.00-11.30)
[2021-07-12 22:15] LABS: Alanine Aminotransfer (ALT/SGP 18 U/L (12-78); Albumin, Blood 2.5 g/dL (3.4-5.0); Albumin/Globulin Ratio 0.7 (0.8-1.8); Alk Phos 70 U/L (50-136); Anion Gap 8 mmol/L (6-16); Aspartate Aminotrans (AST/SGOT 37 U/L (12-37); Bilirubin, Total 0.7 mg/dL (0.1-1.0); Blood Urea Nitrogen 7 mg/dL (8-24); CO2, Blood 23 mmol/L (21-32); Calcium, Blood 8.5 mg/dL (8.5-10.1); Chloride, Blood 108 mmol/L (98-108); Creatinine, Blood 0.54 mg/dL (0.60-1.20); Globulin, Blood 3.7 g/dL (2.2-4.0); Glomerular Filtration Rate >60 (60-); Glucose, Blood 89 mg/dL (70-99); Potassium, Blood 3.8 mmol/L (3.5-5.5); Sodium, Blood 139 mmol/L (136-145); Total Protein, Blood 6.2 g/dL (6.4-8.2); Troponin I 0.384 ng/mL (0.000-0.040)
--- NOTE | 2021-07-13 18:49 | NUR ---
ADMIT NOTE RECEIVED REPORT FROM SIOBHAN SHELBY IN ED. PT TO ROOM VIA [employer] AT APPROX 1450; 4 PERSON ASSIST WITH SLIDER SHEET. PT ORIENTED TO ROOM AND CALL LIGHT; EDUCATED ON FALL RISK AND BED ALARM. PT A&Ox4; CALM AND COOPEATIVE WITH CARE. PT RESTING IN BED. PT DENIES PAIN, CHEST PAIN, SOB AND NAUSEA. PER TELE SR PAC's. CIWA 0 T/O SHIFT, LAST DRINK 07/11 AT 1800 PER PT REPORT. PT HAS REDNESS TO GLUTEAL CLEF, BLANCABLE, PLACED BARRIER CREAM. MEPILEX TO COCCYX FOR PREVENTION. VSS. NO OTHER ACUTE CHANGES NOTED. REPORT GIVEN TO ONCOMING RN.
[2021-07-14 04:34] LABS: BASOPHILS ABSOLUTE AUTO 0.06 K/mm3 (0.00-0.23); BASOPHILS PERCENT AUTO 1 % (0-2); EOSINOPHILS ABSOLUTE AUTO 0.18 K/mm3 (0.00-0.68); EOSINOPHILS PERCENT AUTO 3 % (0-6); Hematocrit 41.5 % (37.0-53.0); Hemoglobin 14.2 g/dL (13.5-17.5); IMMATURE GRAN ABSOLUTE AUTO 0.01 K/mm3 (0.00-0.10); IMMATURE GRAN PERCENT AUTO 0 % (0-1); LYMPHOCYTES ABSOLUTE AUTO 1.47 K/mm3 (0.84-5.20); LYMPHOCYTES PERCENT AUTO 27 % (21-46); MONOCYTES ABSOLUTE AUTO 0.67 K/mm3 (0.16-1.47); MONOCYTES PERCENT AUTO 12 % (4-13); Mean Corpuscular HGB 35.6 pg (26.0-34.0); Mean Corpuscular HGB Conc 34.2 g/dL (31.5-36.5); Mean Corpuscular Volume 104 fL (80-100); Mean Platelet Volume 9.8 fL (9.1-12.4); NEUTROPHILS ABSOLUTE AUTO 3.02 K/mm3 (1.96-9.15); NEUTROPHILS PERCENT AUTO 56 % (41-73); Platelet Count 240 K/mm3 (150-400); RDW Coefficient Variation 13.3 % (11.7-14.2); RDW Standard Deviation 51.2 fL (35.1-46.3); Red Blood Cell Count 3.99 M/mm3 (4.30-5.90); White Blood Cell Count 5.41 K/mm3 (4.00-11.30)
--- NOTE | 2021-07-14 05:33 | NUR ---
SHIFT SUMMARY PATIENT A&OX4. COOPERATIVE WITH CARE. ANSWERS QUESTIONS APPROPRIATLEY. VSS. CIWAS 0 T/O SHIFT. PATIENT SLEEPING DURING MOST OF SHIFT BUT WAKES EASILY TO VERBAL STIMULI. DENIES PAIN, CHEST PAIN/PRESSURE, SOB. PREVENTATIVE MEPILEX REMAINS IN PLACE ON COCCYX. NO OTHER SIGNIFICANT CHANGES. WILL REPORT TO DAY SHIFT RN
[2021-07-14 05:40] LABS: Albumin, Blood 2.3 g/dL (3.4-5.0); Anion Gap 9 mmol/L (6-16); Blood Urea Nitrogen 10 mg/dL (8-24); Bun/Creatinine Ratio 12.4 (12.0-20.0); CO2, Blood 26 mmol/L (21-32); Calcium, Blood 8.7 mg/dL (8.5-10.1); Chloride, Blood 107 mmol/L (98-108); Creatinine, Blood 0.81 mg/dL (0.60-1.20); Glomerular Filtration Rate >60 (60-); Glucose, Blood 91 mg/dL (70-99); Magnesium, Blood 1.5 mg/dL (1.6-2.4); Phosphorus, Blood 3.6 mg/dL (2.5-4.9); Potassium, Blood 3.6 mmol/L (3.5-5.5); Sodium, Blood 142 mmol/L (136-145)
[2021-07-14 11:26] LABS: U Amphetamine Screen Not Detected; U Barbituate Screen Not Detected; U Benzodiazapine Screen Not Detected; U Buprenorphine Screen Not Detected; U Cannabinoids Screen DETECTED; U Cocaine Screen Not Detected; U Methadone Screen Not Detected; U Methamphetamine Screen Not Detected; U Opiates Screen Not Detected; U Oxycodone Screen Not Detected; U Phencyclidine Screen Not Detected; U Propoxyphene Screen Not Detected
--- NOTE | 2021-07-14 14:24 | NUR ---
PT TAKEN TO THE EMU FARMER AT THIS TIME FOR ANGIOGRAM
[2021-07-14 14:41] LABS: Influenza A, PCR NEGATIVE (NEGATIVE); Influenza B, PCR NEGATIVE (NEGATIVE); Resp Syncytial Virus, PCR NEGATIVE (NEGATIVE); SARS-Cov-2 (COVID-19) PCR, MMC NEGATIVE (NEGATIVE)
[2021-07-14 16:05] LABS: International Normalized Ratio 1.09; Prothrombin Time Results 11.4 Sec (9.7-11.5)
--- NOTE | 2021-07-14 17:48 | NUR ---
PT SUMMARY: PT WENT TO ANGIO TODAY HAS RIGHT RADIAL ACCESS SITE TR BAND WITH 9CC OF AIR LEFT. PT TO POSSIBLY COBRA TRANSFER PER REPORT AWAITING VERIFICATION FORM CARDIOLOGY. PT WAS STARTED ON HEP GTT AT 15U/KG/HR, ALSO STARTED ON COREG 3.125MG PT'S BP SYSTOLIC WENT LOW 80-100'S, DR OLIVARES CALLED AND MADE AWARE PARAMETERS ORDERED FOR BP MEDS. PT DENIES ANY CHEST PAIN/PRESSURE, CIWA 0-2, PT ALERT AND ORIENTED AT BASELINE, PLEASANT AND COOPERATIVE. NO OTHER ISSUES REPORTED. PT ABLE TO MAKE NEEDS KNOWN CALL LIGHTS IN REACH WILL MONITOR
--- NOTE | 2021-07-14 22:12 | NUR ---
ASSUMED CARE OF PATIENT AT APPROXIMATELY 1900 FROM RUBÉN Wyatt RN. PATIENT ALERT AND ORIENTED X4; PATIENT S/P ANGIO TO RIGHT RADIAL; TR BAND DEFLATED AT 1900; REMOVED AT 1999 AND REPLACED WITH TEGADERM; SOME OOZING NOTED; LARGE BRUISE ON RIGHT FOREARM THAT WAS PRESENT BEFORE ANGIO PER REPORT. PATIENT HAS PAIN IN RIGHT SHOULDER; REPORTS FX 10 DAYS AGO; REPORTS PROCEDURE TODAY MADE PAIN WORSE; ELEVATED ON PILLOW AND MEDICATED PER EMAR. PATIENT DENIES NUMBNESS TINGLING, DIZZINESS AND NAUSEA. CIWA 1. NSR ON TELE; OXYGEN SATURATION ABOVE 90% ON ROOM AIR. HEPARIN GTT PER ORDER.
--- NOTE | 2021-07-15 00:45 | NUR ---
RIGHT ELBOW SKIN TEAR - SEE PHOTO - PATIENT REPORTS HE HAD WOUND ON ELBOW FROM FALL AT HOME; IT HAD OLD GAUZE SATURATED IN BLOOD AND OTHER FLUIDS WITH PURPLE COBAN WRAPPED AROUND IT; OLD MATERIAL REMOVED AND SKIN TEAR FROM PREVIOUS FALL CLEANED AND REDRESSED.
--- NOTE | 2021-07-15 06:18 | NUR ---
PATIENT SLEPT ABOUT SEVEN HOURS; CIWA 1; NO OTHER ACUTE CHANGES; NPO SINCE MIDNIGHT FOR STRESS TEST THIS AM.
--- NOTE | 2021-07-15 10:14 | NUR ---
PT/OT EVALUATION: CALLED DR. NEGRON FOR PT/OT ORDERS. PATIENT HAS NOT BEEN OUT OF BED, IS WEAK AND STIFF WHEN STAFF ASSIST WITH ROLLING, AND SCHEDULED TO D/C THIS AFTERNOON. HE LIVES ALONE.
[2021-07-15] MEDS ORDERED: ASPI81CH PO (11:56)
[2021-07-15] MEDS ORDERED: CARV3.125 PO (11:57)
[2021-07-15] MEDS ORDERED: ATOR40TA PO (11:57)
[2021-07-15] MEDS ORDERED: Lisinopril2.5 MG PO (11:58)
[2021-07-15] MEDS ORDERED: NICO21TP TOP (11:58)
[2021-07-15] MEDS ORDERED: SPIR25 PO (11:58)
[2021-07-15] MEDS ORDERED: B-1100 M1 PO (11:59)
--- NOTE | 2021-07-15 12:18 | NUR ---
PT CAYETANO THIS AM: PT CAME TO SEE PATIENT AND THIS RN ASSISTED. PATIENT STATED HE COULD STAND, BUT DID NOT MAKE ANY EFFORT TO MOVE LIMBS. A&O X5 BUT SLOW TO RESPOND TO DIRECTIONS. PATIENT COULD NOT HOLD BODY IN SITTING POSITION, THERAPIST DID ALL WORK OF MOVEMENT WHILE THIS RN PROVIDED ADDITIONAL SUPPORT. DISCUSSED D/C TO SNF. PATIENT WILLING TO TRY UMPQUA. WORDS AND ACTIONS DO NO MATCH - STATES WANTS TO BE WORKED HARD AND GET STRONGER, BUT WILL NOT MOVE LIMBS. CIWA SCORES ARE STILL 0-1. HEAD CT HAS BEEN ORDERED TO EVALUATE FOR STROKE.
--- NOTE | 2021-07-15 17:04 | NUR ---
SHIFT SUMMARY: PATIENT WAS SCHEDULED TO D/C TODAY. THIS RN STATED PATIENT HAD NOT BEEN OUT OF BED SINCE ADMIT AND RQSTD A PT/OT CONSULT. PATIENT WAS UNABLE TO MOVE SELF OR STAND W/O MAX ASSIST FROM THERAPIST AND RN. PATIENT WAS SLOW TO ANSWER QUESTIONS OR FOLLOW DIRECTIONS. HE WOULD STATE HE COULD/WOULD DO SOMETHING BUT WOULD MAKE NO EFFORT TO DO SO (MOVE LEGS, TAKE MEDICATION CUP, EAT, ETC). CT HEAD SCAN WAS ORDERED AND SUBDURAL HEMATOMAS WERE FOUND. PATIENT WILL TRANSFER TO [facility] WHEN BED IS AVAILABLE. PATIENT STATES HE IS "PISSED" ABOUT HOW THE DAY HAS GONE, BUT REMAINS PLEASANT WITH STAFF. PATIENT VOCALIZED "BLEEDING ON THE BRAIN SOUNDS BAD" AND THAT IT IS BEST HE STAYS IN THE HOSPITAL, BUT ALSO STATES HE IS SAFE TO GO HOME. HIS RIGHT ELBOW DRESSING WAS CHANGED THIS AFTERNOON. ANGIO SITE WNL. BP WERE LOW THIS AFTERNOON BUT HAVE RETURNED TO NORMAL AT THIS TIME. WILL REPORT TO DAWN RN.
--- NOTE | 2021-07-15 19:54 | NUR ---
REPORT GIVEN TO JOANN IN [facility].
== END 2021-07-15 19:00 | disposition short-term general hospital (02) ==
LOC: ER 20:23 → ERHOLD 23:24 → PCU 23:24 → ERHOLD 23:24 → PCU 07-13 14:45
PROVIDERS: Emergency Medicine; Internal Medicine; Internal Medicine Cardiovascular Disease; Pharmacist; ADMIT Internal Medicine
PROC: B2111ZZ Fluoroscopy of Multiple Coronary Arteries using Low Osmolar Contrast (ICD-10-PCS; principal; 2021-07-14)
PROC: 4A023N7 Measurement of Cardiac Sampling and Pressure, Left Heart, Percutaneous Approach (ICD-10-PCS; principal; 2021-07-14)
DX: I21.A1 Myocardial infarction type 2 (principal); S06.5X9A Traumatic subdural hemorrhage with loss of consciousness of unspecified duration, initial encounter; W19.XXXA Unspecified fall, initial encounter; I42.6 Alcoholic cardiomyopathy; I25.10 Atherosclerotic heart disease of native coronary artery without angina pectoris; E83.42 Hypomagnesemia; Z66 Do not resuscitate; F17.210 Nicotine dependence, cigarettes, uncomplicated; F10.20 Alcohol dependence, uncomplicated; E44.0 Moderate protein-calorie malnutrition; J44.9 Chronic obstructive pulmonary disease, unspecified; I10 Essential (primary) hypertension; Z79.899 Other long term (current) drug therapy; Z20.822 Contact with and (suspected) exposure to COVID-19
CPT/HCPCS: 0241U; 36415; 70450; 71260; 75630; 76937; 80053; 80069; 83735; 84484; 85025; 85379; 85610; 85730; 90686; 93005; 93010; 93306; 93456; 93458; 96372; 96374; 97162; 97530; 99285-25; A9270; C1769; C1894; G0378; J1644; J1650; J2250; J3010; J3475; J7030; J7050; Q9967

== ENCOUNTER 2025-06-18 19:25 | Inpatient (IN) | payer OTHER ==
[~2025-06-18] VITALS: Ht 182.9 cm; Wt 71.8 kg
[~2025-06-18 19:25] MED LIST changes: +ASPI81CH PO; +ATOR40TA PO; +B-1100 M1 PO; +CARV3.125 PO; +Lisinopril2.5 MG PO; +NICO21TP TOP; +SPIR25 PO
[2025-06-18 20:16] LABS: BASOPHILS ABSOLUTE AUTO 0.02 K/mm3 (0.00-0.23); BASOPHILS PERCENT AUTO 0 % (0-2); EOSINOPHILS ABSOLUTE AUTO 0.00 K/mm3 (0.00-0.68); EOSINOPHILS PERCENT AUTO 0 % (0-6); Hematocrit 38.0 % (37.0-53.0); Hemoglobin 13.2 g/dL (13.5-17.5); IMMATURE GRAN ABSOLUTE AUTO 0.06 K/mm3 (0.00-0.10); IMMATURE GRAN PERCENT AUTO 1 % (0-1); LYMPHOCYTES ABSOLUTE AUTO 0.70 K/mm3 (0.84-5.20); LYMPHOCYTES PERCENT AUTO 7 % (21-46); MONOCYTES ABSOLUTE AUTO 0.97 K/mm3 (0.16-1.47); MONOCYTES PERCENT AUTO 10 % (4-13); Mean Corpuscular HGB Conc 34.7 g/dL (31.5-36.5); Mean Corpuscular Volume 105 fL (80-100); NEUTROPHILS ABSOLUTE AUTO 8.09 K/mm3 (1.96-9.15); NEUTROPHILS PERCENT AUTO 82 % (41-73); NRBC ABSOLUTE 0.05 K/mm3 (0.00-0.02); NRBC Auto 0.5 /100 WBC (0.0-0.2); RDW Coefficient Variation 13.5 % (11.7-14.2); RDW Standard Deviation 52.2 fL (35.1-46.3)
[2025-06-18] MEDS ORDERED: NS 1,000 ML IV ONE ×2 (20:21→20:52)
[2025-06-18 20:37] LABS: Platelet Count 126 K/mm3 (150-400)
[2025-06-18 21:05] LABS: Magnesium, Blood 2.1 mg/dL (1.6-2.4)
[2025-06-18] MEDS ORDERED: NS 1,000 ML IV SCH (21:10)
[2025-06-18 21:28] LABS: Thyroid Stimulating Hormone 3.51 uIU/mL (0.360-4.800)
[2025-06-18 21:40] LABS: D-Dimer, Quantitative 7.5 mg/L FEU (0.00-0.52); Prothrombin Time Results 22.3 Sec (9.7-11.5)
[2025-06-18 22:11] LABS: Alanine Aminotransfer (ALT/SGP 1488.0 U/L (12-78); Albumin, Blood 2.9 g/dL (3.4-5.0); Albumin/Globulin Ratio 0.9 (0.8-1.8); Anion Gap 15.0 mmol/L (3-11); Aspartate Aminotrans (AST/SGOT 5886.0 U/L (12-37); Bilirubin, Total 2.4 mg/dL (0.1-1.0); Blood Urea Nitrogen 67.0 mg/dL (8-24); CO2, Blood 21.0 mmol/L (21-32); Calcium, Blood 8.2 mg/dL (8.5-10.1); Chloride, Blood 100.0 mmol/L (98-108); Creatinine, Blood 1.87 mg/dL (0.60-1.20); Globulin, Blood 3.1 g/dL (2.2-4.0); Glucose, Blood 114.0 mg/dL (70-99); Phosphorus, Blood 4.9 mg/dL (2.5-4.9); Potassium, Blood 4.7 mmol/L (3.5-5.5); Sodium, Blood 131.0 mmol/L (136-145); Total Protein, Blood 6.0 g/dL (6.4-8.2)
[2025-06-19] VITALS (73 sets, daily range): BP systolic 64–130; BP diastolic 45–101
[2025-06-19] MEDS ORDERED: FLU VACC TS2025(65UP)/MF59C/PF 45 MCG/0.5 ML SYRINGE IM SCH (01:15)
[2025-06-19] MEDS ORDERED: Ondansetron HCl 2 MG / ML 2ML Vial IV PRN (01:20)
[2025-06-19] MEDS ORDERED: Ipratropium/Albuterol SulF 2.5-0.5MG/3 ML Amp INH SCH (01:25)
[2025-06-19] MEDS ORDERED: NS 1,000 ML IV SCH (02:00)
[2025-06-19] MEDS ORDERED: NS 1,000 ML IV ONE ×2 (02:25→05:30)
[2025-06-19] MEDS ORDERED: LORazepam 2 MG/ML 1ML Injection IV PRN ×3 (02:40)
[2025-06-19 04:13] LABS: BASOPHILS ABSOLUTE AUTO 0.02 K/mm3 (0.00-0.23); BASOPHILS PERCENT AUTO 0 % (0-2); EOSINOPHILS ABSOLUTE AUTO 0.00 K/mm3 (0.00-0.68); EOSINOPHILS PERCENT AUTO 0 % (0-6); Hematocrit 42.5 % (37.0-53.0); Hemoglobin 14.2 g/dL (13.5-17.5); IMMATURE GRAN ABSOLUTE AUTO 0.08 K/mm3 (0.00-0.10); IMMATURE GRAN PERCENT AUTO 1 % (0-1); LYMPHOCYTES ABSOLUTE AUTO 1.15 K/mm3 (0.84-5.20); LYMPHOCYTES PERCENT AUTO 10 % (21-46); MONOCYTES ABSOLUTE AUTO 1.17 K/mm3 (0.16-1.47); MONOCYTES PERCENT AUTO 10 % (4-13); Mean Corpuscular HGB Conc 33.4 g/dL (31.5-36.5); Mean Corpuscular Volume 109 fL (80-100); NEUTROPHILS ABSOLUTE AUTO 9.27 K/mm3 (1.96-9.15); NEUTROPHILS PERCENT AUTO 79 % (41-73); NRBC ABSOLUTE 0.08 K/mm3 (0.00-0.02); NRBC Auto 0.7 /100 WBC (0.0-0.2); Platelet Count 132 K/mm3 (150-400); RDW Coefficient Variation 13.7 % (11.7-14.2); RDW Standard Deviation 55.1 fL (35.1-46.3)
--- NOTE | 2025-06-19 04:32 | NUR ---
ADMIT NOTE REPORT RECEIVED BY THIS RN FROM ER SAV @ APPROX 0300. PT ARRIVED TO PCU 08 @ APPROX 0318 AND WAS SLID OVER TO PCU BY MEDICAL STAFF. PT IS ALERT AND HOLDING APPROPRIATE CONVERSATION WITH STAFF, NO SIGNS OF ACUTE DISTRESS AT THIS TIME
[2025-06-19] MEDS ORDERED: Metoprolol Tartrate 1 MG/ML 5 ML VIAL IV ONE (04:35)
[2025-06-19] MEDS ORDERED: Amiodarone HCl 50 MG / ML 3 ML Amp IV ONE (05:15)
[2025-06-19] MEDS ORDERED: Amiodarone HCl 150 MG in NS 100 ML IV ONE (05:25)
[2025-06-19] MEDS ORDERED: NS 250 ML IV ONE (05:40)
[2025-06-19 05:57] LABS: BASOPHILS ABSOLUTE AUTO 0.02 K/mm3 (0.00-0.23); BASOPHILS PERCENT AUTO 0 % (0-2); EOSINOPHILS ABSOLUTE AUTO 0.00 K/mm3 (0.00-0.68); EOSINOPHILS PERCENT AUTO 0 % (0-6); Hematocrit 39.6 % (37.0-53.0); Hemoglobin 13.4 g/dL (13.5-17.5); IMMATURE GRAN ABSOLUTE AUTO 0.06 K/mm3 (0.00-0.10); IMMATURE GRAN PERCENT AUTO 1 % (0-1); LYMPHOCYTES ABSOLUTE AUTO 0.89 K/mm3 (0.84-5.20); LYMPHOCYTES PERCENT AUTO 8 % (21-46); MONOCYTES ABSOLUTE AUTO 0.90 K/mm3 (0.16-1.47); MONOCYTES PERCENT AUTO 8 % (4-13); Mean Corpuscular HGB Conc 33.8 g/dL (31.5-36.5); Mean Corpuscular Volume 106 fL (80-100); NEUTROPHILS ABSOLUTE AUTO 9.93 K/mm3 (1.96-9.15); NEUTROPHILS PERCENT AUTO 84 % (41-73); NRBC ABSOLUTE 0.10 K/mm3 (0.00-0.02); NRBC Auto 0.8 /100 WBC (0.0-0.2); Platelet Count 136 K/mm3 (150-400); RDW Coefficient Variation 13.6 % (11.7-14.2); RDW Standard Deviation 53.3 fL (35.1-46.3)
[2025-06-19 06:03] LABS: pH Blood Arterial 7.36 (7.35-7.45)
--- NOTE | 2025-06-19 06:04 | NUR ---
TRANSFER OF CARE DR. RONQUILLO ROUNDED ON PT AND ASSESSED PT @ APPROX 0410 LOPRESSOR GIVEN TO PT @ APPROX 0451, @ APPROX 0500 PT BECAME HYPOTENSIVE/ PT STILL ALERT AND ANSWERING QUESTIONS APPROPRIATLY, MANUAL BP TAKEN TO CONFIRM BP, PCU CHARGE TO ROOM SHORTLY AFTER AND NOTIFED DR. DRISCOLL OF PT LOW BP ICU CHARGE ARRIVED TO ROOM @ APPROX 0530 PT PLACED ON NON-REBRETHER SPO2 SUSTAINING 70'S/ PT DENIED SOB OR DIFFICUTLY BREATHING/ RT NOTIFED AND CAME TO ROOM TO PLACE PT ON BIPAP AND AT THIS TIME DR. MOON ARRIVED TO ROOM, PT REMAINED ALERT AND ORINTED, PT DENIED CHEST P/P AT THIS TIME/ PULSES BECAME WEAKER PT TRANSFERED TO ICU 15 @ APPROX 0555, REPORT GIVEN BY THIS RN TO COMMERCIAL JOURNEYMAN ELECTRICIAN RICHAR AT BEDSIDE.
[2025-06-19 06:32] LABS: Magnesium, Blood 2.2 mg/dL (1.6-2.4)
[2025-06-19] MEDS ORDERED: Mag Sulfate 1 GM/D5% 100ML 100 ML IV STA (06:44)
[2025-06-19 06:46] LABS: Alanine Aminotransfer (ALT/SGP 1551.0 U/L (12-78); Albumin, Blood 3.0 g/dL (3.4-5.0); Albumin/Globulin Ratio 0.9 (0.8-1.8); Anion Gap 16.0 mmol/L (3-11); Bilirubin, Total 2.5 mg/dL (0.1-1.0); Blood Urea Nitrogen 67.0 mg/dL (8-24); CO2, Blood 18.0 mmol/L (21-32); Calcium, Blood 8.2 mg/dL (8.5-10.1); Chloride, Blood 101.0 mmol/L (98-108); Creatinine, Blood 2.04 mg/dL (0.60-1.20); Globulin, Blood 3.2 g/dL (2.2-4.0); Glucose, Blood 93.0 mg/dL (70-99); Potassium, Blood 4.9 mmol/L (3.5-5.5); Sodium, Blood 130.0 mmol/L (136-145); Total Protein, Blood 6.2 g/dL (6.4-8.2)
--- NOTE | 2025-06-19 07:01 | NUR ---
SHIFT SUMMARY: PT ARRIVED FROM PCU AFTER HAVING SOME LOW BLOOD PRESSURES WITH THE INTENTION OF STARTING LEVOPHED. HE ARRIVED ON BIPAP, SKIN WAS PALE AND CYANOTIC IN THE UPPER EXTREMITIES AND PALE IN THE LOWER. ALL EXTREMITIES WERE VERY COLD. BEAR HUGGER PLACED, IV STARTED. HR WAS WNL, DID NOT REQUIRE AMIO AND BP IMPROVED AND HE DID NOT REQUIRE THE LEVOPHED. BP WAS CONFIRMED WITH A MANUAL
--- NOTE | 2025-06-19 09:50 | NUR ---
ASSUMOPTION OF CARE RECEIVED REPORT FROM [facility] NURSE. PT A&OX4, FOLLOWS COMMANDS, EXPRESSES NEEDS, AND CALL LIGHT WITHIN REACH. PT ON 2L NC, SPO2>92%. PT DENIES SOB. HR IN 80-90S, MAP>65. PT DENIES CHEST PAIN. PT IN NSR WITH PVCS. PT DENIES ABD PAIN. 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 DENIES S/SX OF ETOH WITHDRAWAL. PT HAS 2 PIVS IN LEFT ARM, WNL. CALL LIGHT WITHIN REACH AND NO FURTHER NEEDS EXPRESSED AT THIS TIME.
[2025-06-19 10:31] LABS: U Amphetamine Screen Not Detected; U Barbiturate Screen Not Detected; U Benzodiazapine Screen Not Detected; U Buprenorphine Screen Not Detected; U Cannabinoids Screen Not Detected; U Cocaine Screen Not Detected; U Methadone Screen Not Detected; U Methamphetamine Screen DETECTED; U Opiates Screen Not Detected; U Oxycodone Screen Not Detected; U Phencyclidine Screen Not Detected
[2025-06-19] MEDS ORDERED: Ipratropium/Albuterol SulF 2.5-0.5MG/3 ML Amp INH PRN (11:05)
[2025-06-19] MEDS ORDERED: Furosemide 10 MG / ML 2ML Vial IV SCH ×2 (13:00→15:00)
[2025-06-19 13:42] LABS: Anion Gap 13.0 mmol/L (3-11); Blood Urea Nitrogen 72.0 mg/dL (8-24); CO2, Blood 22.0 mmol/L (21-32); Calcium, Blood 7.6 mg/dL (8.5-10.1); Chloride, Blood 100.0 mmol/L (98-108); Creatinine, Blood 2.11 mg/dL (0.60-1.20); Glucose, Blood 85.0 mg/dL (70-99); Potassium, Blood 5.1 mmol/L (3.5-5.5); Sodium, Blood 130.0 mmol/L (136-145)
[2025-06-19 15:56] LABS: Anti-Xa UFH, PHA Monitoring <0.10 IU/mL; Prothrombin Time Results 23.5 Sec (9.7-11.5)
--- NOTE | 2025-06-19 18:00 | NUR ---
SHIFT SUMMARY PT A&OX4 T/O SHIFT. PT HAS EPISODES OF FRUSTRATION, REMOVES ALL THE STICKERS AND STATES "I AM LEAVING" AND "I WANT TO LEAVE FOR A SMOKE." EDUCATED THE PT ON THE RISKS OF LEAVING AMA, EXPRESSES UNDERSTANDING WITH EDUCATION. OFFERED NICOTINE PATCH, PT DID NOT WANT ONE AT THIS TIME. PT WAS ON 5L NC IN AM, TITRATED TO RA WITH NO S/SX OF SOB. PT HAS FINE RALES T/O LOBES. PRN BREATHING TX IN EMAR. PT HAS BEEN IN NSR WITH PACS AND PVCS, HR IN 70-90S WITH A FEW EPISODES OF HR IN 130-150S, RECOVERS BACK INTO 70-90S. CARDIAC CONSULTED AND EKG PERFORMED. MAP >65 T/O SHIFT. PT HAS [address], LAC AND JUDE. BOTH FLUSH AND DRAW BACK. LAC WAS LEAKING, TEG WAS REPLACED. PT VOIDS IN URINAL, 1 INCONTINENT BM. ATTENDS IN PL[address]. PT HAS >3 SECONDS CAP REFILL IN EXTREMITIES. COOL BLE WITH DISCOLORATION. HEPARIN STARTED THIS AFTERNOON, INFUSING AT 12 UNITS. NO FURTHER NEEDS EXPRESSED AT THIS TIME, CALL LIGHT WITHIN REACH.
[2025-06-19] MEDS ORDERED: Dose Adjust by Pharmacy XX STA (18:10)
[2025-06-19] MEDS ORDERED: Heparin Sodium,Porcine/0.5 NS 500 ML IV SCH (18:15)
[2025-06-20] VITALS (25 sets, daily range): BP systolic 91–136; BP diastolic 57–102
[2025-06-20] MEDS ORDERED: Dose Adjust by Pharmacy XX STA (01:00)
[2025-06-20] MEDS ORDERED: NS 1,000 ML IV ONE (04:00)
--- NOTE | 2025-06-20 06:16 | NUR ---
SHIFT SUMMARY NO ACUTE CHANGES. SLEPT INTERMITTENTLY. ORIENTED TO SELF AND OCCASIONALLY TO PLACE. AT TIMES, PT THINKS THAT HE IS AT HOME. OCCASIONAL CONFUSED CONVERSATION. MOVES ALL EXTREMITITES. ATTEMPTS TO ASSIST WITH REPOSTIONING. DENIES C/O PAIN OR DISCOMFORT. VSS. AFEBRILE. PLACED ON 2L NC THIS AM WHEN SATS DECREASED TO 88%. O2 SATS NOW 95%. RESPIRATIONS EVEN AND UNLABORED. MILD SOB WITH EXERTION. VOIDS USING URINAL, BUT IS ALSO OCCASIONALLY INCONTINENT OF BOTH URINE AND STOOL. HEPARIN GTT INFUSING PER PHARMACY- 14UNITS/KG/HR. WILL REPORT TO ONCOMING RN WHEN AVAILABLE.
--- NOTE | 2025-06-20 07:00 | NUR ---
ASSUMED CARE OF PATIENT AT APPROXIMATELY 0700. REPORT RECEIVED FROM SIOBHAN TORRES. PT AWAKE, INTERACTING c STAFF APPROPRIATELY DURING BEDSIDE REPORT. CONTINUOUS CARDIAC MONITORING IN PLACE, RECENTLY CONVERTED TO AFIB RVR AT APPROXIMATELY 0645 PER JINGLE WRITER RN. ON 2LPM O2 VIA NC. HEPARIN INFUSING AT 14 U/KG/HR. SEE SHIFT ASSESSMENT FOR FULL DETAILS.
[2025-06-20 07:21] LABS: BASOPHILS ABSOLUTE AUTO 0.02 K/mm3 (0.00-0.23); BASOPHILS PERCENT AUTO 0 % (0-2); EOSINOPHILS ABSOLUTE AUTO 0.02 K/mm3 (0.00-0.68); EOSINOPHILS PERCENT AUTO 0 % (0-6); Hematocrit 37.8 % (37.0-53.0); Hemoglobin 13.2 g/dL (13.5-17.5); IMMATURE GRAN ABSOLUTE AUTO 0.09 K/mm3 (0.00-0.10); IMMATURE GRAN PERCENT AUTO 1 % (0-1); LYMPHOCYTES ABSOLUTE AUTO 0.98 K/mm3 (0.84-5.20); LYMPHOCYTES PERCENT AUTO 9 % (21-46); MONOCYTES ABSOLUTE AUTO 0.71 K/mm3 (0.16-1.47); MONOCYTES PERCENT AUTO 7 % (4-13); Mean Corpuscular HGB Conc 34.9 g/dL (31.5-36.5); Mean Corpuscular Volume 105 fL (80-100); NEUTROPHILS ABSOLUTE AUTO 8.95 K/mm3 (1.96-9.15); NEUTROPHILS PERCENT AUTO 83 % (41-73); NRBC ABSOLUTE 0.22 K/mm3 (0.00-0.02); NRBC Auto 2.0 /100 WBC (0.0-0.2); Platelet Count 147 K/mm3 (150-400); RDW Coefficient Variation 13.6 % (11.7-14.2); RDW Standard Deviation 51.8 fL (35.1-46.3)
[2025-06-20 07:45] LABS: Prothrombin Time Results 20.4 Sec (9.7-11.5)
[2025-06-20 08:09] LABS: Magnesium, Blood 2.1 mg/dL (1.6-2.4)
[2025-06-20 08:38] LABS: Alanine Aminotransfer (ALT/SGP 1294.0 U/L (12-78); Albumin, Blood 2.7 g/dL (3.4-5.0); Albumin/Globulin Ratio 0.9 (0.8-1.8); Anion Gap 10.0 mmol/L (3-11); Aspartate Aminotrans (AST/SGOT 2541.0 U/L (12-37); Bilirubin, Total 1.6 mg/dL (0.1-1.0); Blood Urea Nitrogen 70.0 mg/dL (8-24); CO2, Blood 22.0 mmol/L (21-32); Calcium, Blood 7.8 mg/dL (8.5-10.1); Chloride, Blood 103.0 mmol/L (98-108); Creatinine, Blood 1.7 mg/dL (0.60-1.20); Globulin, Blood 2.9 g/dL (2.2-4.0); Glucose, Blood 84.0 mg/dL (70-99); Potassium, Blood 4.1 mmol/L (3.5-5.5); Sodium, Blood 131.0 mmol/L (136-145); Total Protein, Blood 5.6 g/dL (6.4-8.2)
--- NOTE | 2025-06-20 10:31 | NUR ---
Met with pt at bedside, he expressed the belief that he is dying. He states the doctors have told him how sick he is, and he just wants to be able to at home. We discussed code status, and he is agreeable to DNR once we reviewed the code status options and what they mean. Received order to change code status to DNR. This PC RN spoke with the patient's daughter Jacinta at his request to update her on his condition. Jacinta verbalizes her willingness to come help the patient in his home through end of life, as pt has also expressed today he had a positive view of hospice, and is interested in pursuing it. If the patient is willing, Jacinta is willing to help. She requests this PC RN discuss her willingness to assist him. She reports he is very stubborn, and she is worried he will refuse. This PC RN agrees to discuss this with the patient and report back to Jacinta. CM updated.
--- NOTE | 2025-06-20 11:20 | NUR ---
PT AGREEABLE TO DAUGHTER WES HELPING HIM. SHE IS PLANNING TO FLY OUT IN THE MORNING. PT'S BROTHER IS WILLING TO DRIVE THE PATIENT HOME, AND HIS NEIGHBOR LISETTE IS GOING TO BE THE POINT OF CONTACT FOR THE HOSPICE EQUIPMENT DELIVERY. PT INSISTS HE LEAVE TODAY, OR WILL LEAVE AMA. CM ABLE TO SET UP [facility] FOR SAME DAY ADMISSION.
--- NOTE | 2025-06-20 13:18 | NUR ---
FOLIC ACID INFILTRATION TO LAC NOTED UPON DISCONNECTING FOLIC ACID THAT WAS ADMINISTERED VIA IV DRIP. TOTAL OF 50mL INFUSED. SPOKE WITH ARNOLD IN PHARMACY - ADVISED TO APPLY HOT/COLD COMPRESSES FOR IN 20 MINUTE INTERVALS X 3. IV REMOVED, WARM PACK APPLIED, AFFECTED LIMB ELEVATED. WILL CONTINUE TO MONITOR.
--- NOTE | 2025-06-20 16:18 | NUR ---
PT ESCORTED HOME VIA [facility]. PT'S BROTHER EMELIA WAS CALLED AND STATES HE WILL BE WAITING AT PATIENT'S HOME. ALL BELONGINGS RETURNED TO PATIENT.
[2025-06-20 17:58] LABS: HEPATITIS A ANTIBODY, IGM Negative (Negative); HEPATITIS C AB CIA INTERP Negative (Negative); HEPATITIS C ANTIBODY CIA INDEX <0.02 IV
== END 2025-06-20 16:14 | disposition hospice, home (50) | DRG 291 ==
LOC: ER 19:25 → PCU 19:26 → ICUE 06-19 06:05
PROVIDERS: Emergency Medicine; ADMIT Internal Medicine
PROC: B24BZZZ Ultrasonography of Heart with Aorta (ICD-10-PCS; principal; 2025-06-19)
PROC: 4A033R1 Measurement of Arterial Saturation, Peripheral, Percutaneous Approach (ICD-10-PCS; 2025-06-19)
DX: I11.0 Hypertensive heart disease with heart failure (principal); I50.23 Acute on chronic systolic (congestive) heart failure; J96.01 Acute respiratory failure with hypoxia; N17.9 Acute kidney failure, unspecified; F10.139 Alcohol abuse with withdrawal, unspecified; I48.92 Unspecified atrial flutter; E87.20 Acidosis, unspecified; F17.210 Nicotine dependence, cigarettes, uncomplicated; E86.0 Dehydration; D69.6 Thrombocytopenia, unspecified; R00.0 Tachycardia, unspecified; E78.5 Hyperlipidemia, unspecified; J44.9 Chronic obstructive pulmonary disease, unspecified; I48.0 Paroxysmal atrial fibrillation; I42.6 Alcoholic cardiomyopathy; R74.01 Elevation of levels of liver transaminase levels; I25.10 Atherosclerotic heart disease of native coronary artery without angina pectoris; F15.90 Other stimulant use, unspecified, uncomplicated; R91.1 Solitary pulmonary nodule; I42.0 Dilated cardiomyopathy; Z85.068 Personal history of other malignant neoplasm of small intestine; I25.2 Old myocardial infarction; Z85.028 Personal history of other malignant neoplasm of stomach; Z79.899 Other long term (current) drug therapy; Z79.1 Long term (current) use of non-steroidal anti-inflammatories (NSAID)
CPT/HCPCS: 36415; 36600; 51702; 51798; 71045; 71260; 76705; 80048; 80053; 80074; 80320; 82803; 83605; 83690; 83735; 83880; 84100; 84443; 84484; 85025; 85379; 85520; 85610; 85730; 87040; 93005; 93010; 93922; 94660; 94762; 96360-59; 96361; 96361-59; 96365; 96368; 96375; 99285-25; A9270; C8929; G0378; J1644; J1938; J3411; J7030; J7050; Q9957; Q9967